=== PATIENT | female | born 1970 | race African-American/Black ===

== ENCOUNTER 2018-08-29 06:09 | Emergency (ER) | payer OTHER ==
[~2018-08-29] VITALS: Ht 154.9 cm; Wt 83.9 kg
[2018-08-29] MEDS ORDERED: BUPROPION XL300 MG ORAL (06:18)
[2018-08-29] MEDS ORDERED: REMERON30 MG ORAL (06:18)
[2018-08-29] MEDS ORDERED: TRAZODONE HCL150 MG ORAL (06:18)
[2018-08-29] MEDS ORDERED: ABILIFY20 MG ORAL (06:18)
[2018-08-29 06:21] VITALS: BP 125/73
--- NOTE | 2018-08-29 06:22 | NUR ---
ED Nurse Note: pt walked in due to toothache and right upper gum swelling x 5 days ago. pt rates pain a 10/10 pain that is non radiating. pt describes pain as pressure like. no active bleeding noted.
--- NOTE | 2018-08-29 06:36 | Emergency Room Report ---
History of Present Illness General Chief Complaint: Toothache Source: Patient Present Illness HPI Patient presents with complaints of pain and swelling to the right upper dental region Reports that she has an appointment with the dental clinic in the first week of September Denies any fevers or chills denies any trismus denies any sore throat or difficulty swallowing Pain is 7 out of 10 sharp localized right upper gingival area Denies any neck pain or photophobia Allergies: Coded Allergies: No Known Allergies (Unverified , 08/29/18) Patient History Past Medical History: see triage record Pertinent Family History: none Last Menstrual Period: 5 years ago Now: No : 2 Para: 0 Reviewed Nursing Documentation: PMH: Agreed; PSxH: Agreed Nursing Documentation-PMH Past Medical History: No Stated History History Of Psychiatric Problem: Yes - major depression with psychotic features. Review of Systems All Other Systems: negative except mentioned in HPI Physical Exam Vital Signs Date Time Temp Pulse Resp B/P (MAP) Pulse Ox O2 Delivery O2 Flow Rate FiO2 08/29/18 06:12 98.2 110 16 128/73 95 Room Air Sp02 EP Interpretation: reviewed, normal General Appearance: well appearing, no apparent distress Head: normocephalic, atraumatic Eyes: bilateral eye PERRL, bilateral eye EOMI ENT: other - Mild swelling on the right maxillary upper gingival area compared to the left, poor dentition throughout, no obvious visible gingival abscess externally airway clear Neck: supple Respiratory: lungs clear Cardiovascular #1: regular rate, rhythm Gastrointestinal: non tender, soft Musculoskeletal: normal inspection Neurologic: alert, oriented x3, responsive, 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 Psychiatric: mood/affect normal Skin: other - Mild swelling right upper gingival area Lymphatic: no adenopathy Medical Decision Making Diagnostic Impression: Primary Impression: Dental abscess ER Course Given the patient's history exam and presentation Appears to have findings consistent with dental abscess There is no clear area of abscess externally Patient will require antibiotics and close dental specialty follow-up and will return with any changes Last Vital Signs Date Time Temp Pulse Resp B/P (MAP) Pulse Ox O2 Delivery O2 Flow Rate FiO2 08/29/18 06:21 98.2 67 16 125/73 96 Room Air Status: improved Disposition: HOME, SELF-CARE Condition: Improved Additional Instructions: Patient is provided with the discharge instructions notified to follow up with primary doctor in the next 2-3 days otherwise return to the er with any worsening symptoms. Please note that this report is being documented using DRAGON technology. This can lead to erroneous entry secondary to incorrect interpretation by the dictating instrument. Elisabeth Carrillo DO Aug 29, 2018 06:36
[2018-08-29] MEDS ORDERED: AUGMENTIN 875-1 EAC1 ORAL (06:40)
[2018-08-29] MEDS ORDERED: IBUPROFEN600 MG ORAL (06:40)
[2018-08-29 06:44] VITALS: BP 123/73
[2018-08-29] MEDS ORDERED: Augmentin 875mg Tab ORAL ONE (06:45)
--- NOTE | 2018-08-29 06:45 | NUR ---
ER DISCHARGE NOTE: Patient is cleared to be discharged per ERMD, pt is aox4, on room air, with stable vital signs. pt was given dc and prescription instructions, pt was able to verbalize understanding, pt id band without complications. pt is able to ambulate with steady gait. pt took all belongings.
== END 2018-08-29 06:58 | disposition home or self-care (01) ==
LOC: EMR 06:40
DX: K08.89 Other specified disorders of teeth and supporting structures (principal); F32.9 Major depressive disorder, single episode, unspecified
CPT/HCPCS: 99282